=== PATIENT | male | born 1935 | race Caucasian/White ===

== ENCOUNTER → 2016-11-28 | Outpatient (CLI) | payer MEDICARE, OTHER ==
[2016-11-28 10:35] LABS: ALBUMIN SERUM 3.2 g/dL (3.5-5.0); BILIRUBIN,TOTAL 0.7 mg/dL (0.2-2.0); CALCIUM SERUM 8.4 mg/dL (8.4-10.2); GLOM FILT RATE Estimated 30.4 mL/min (>60); PHOSPHOROUS 2.8 mg/dL (2.5-4.6); POTASSIUM 3.3 mmol/L (3.5-5.1); PROTEIN TOTAL SERUM 6.2 g/dL (6.0-8.3); URIC ACID 8.5 mg/dL (2.6-7.2)
[2016-12-02 17:12] LABS: CALCIUM (PTHINTACT) 8.7 mg/dL (8.6-10.3)
== END | disposition home or self-care (01) ==
LOC: SLAB 09:43
PROVIDERS: Internal Medicine Nephrology
DX: N18.3 Chronic kidney disease, stage 3 (moderate) (principal); N25.81 Secondary hyperparathyroidism of renal origin
CPT/HCPCS: 36415; 80053; 82310; 83970; 84100; 84550